=== PATIENT | male | born 1945 | race Caucasian/White ===

== ENCOUNTER 2018-06-05 12:53 | Emergency (ER) | payer OTHER ==
[~2018-06-05] VITALS: Ht 180.3 cm; Wt 97.5 kg
[2018-06-05 12:57] VITALS: Ht 180.3 cm; Wt 97.5 kg
[2018-06-05 13:44] LABS: BASOPHIL % 1.2 % (0-2); PLATELET COUNT 197 x10^3mcL (130-400); RED CELL DISTRIBUTION WIDTH 14.2 % (11.5-14.5)
[2018-06-05 14:08] LABS: CARBON DIOXIDE 30.2 mmol/L (21-32); CHLORIDE SERUM 104 mmol/L (98-107); CREATININE SERUM 0.9 mg/dL (0.7-1.3); GLUCOSE SERUM 108 mg/dL (74-106); POTASSIUM SERUM 3.6 mmol/L (3.5-5.1); SODIUM SERUM 140 mmol/L (136-145)
[2018-06-05 14:12] LABS: ALBUMIN 3.9 g/dL (3.4-5.0); ALKALINE PHOSPHATASE 97 U/L (46-116); ALT/SGPT 25 U/L (16-63); AST/SGOT 18 U/L (15-37); BILIRUBIN TOTAL 0.36 mg/dL (0.20-1.00)
[2018-06-05 15:06] VITALS: BP 136/81
== END 2018-06-05 15:06 | disposition home or self-care (01) ==
LOC: ED 12:53
PROVIDERS: Emergency Medicine
DX: S00.81XA Abrasion of other part of head, initial encounter (principal); S09.8XXA Other specified injuries of head, initial encounter; W18.30XA Fall on same level, unspecified, initial encounter; Y93.89 Activity, other specified; Y92.89 Other specified places as the place of occurrence of the external cause; Y99.8 Other external cause status
CPT/HCPCS: 36415; Q0092

== ENCOUNTER 2018-12-28 15:15 | Inpatient (IN) | payer OTHER, MEDICARE ==
[~2018-12-28] VITALS: Ht 177.8 cm; Wt 94.8 kg
[2018-12-28 15:33] VITALS: Ht 177.8 cm; Wt 94.8 kg
[2018-12-28] MEDS ORDERED: LISINOPRIL10 MG PO (17:16)
[2018-12-28] MEDS ORDERED: SIMVASTATIN40 M1 PO (17:16)
[2018-12-28 17:18] LABS: BASOPHIL % 0.8 % (0-2); PLATELET COUNT 200 x10^3mcL (130-400); RED CELL DISTRIBUTION WIDTH 14.3 % (11.5-14.5)
[2018-12-28 17:28] LABS: CALCIUM 9.1 mg/dL (8.5-10.1); CARBON DIOXIDE 30.8 mmol/L (21-32); CHLORIDE SERUM 105 mmol/L (98-107); CREATININE SERUM 1.1 mg/dL (0.7-1.3); GLUCOSE SERUM 119 mg/dL (74-106); POTASSIUM SERUM 4.7 mmol/L (3.5-5.1); SODIUM SERUM 142 mmol/L (136-145)
[2018-12-28 17:36] LABS: ALBUMIN 4.1 g/dL (3.4-5.0); ALKALINE PHOSPHATASE 85 U/L (46-116); ALT/SGPT 27 U/L (16-63); AST/SGOT 26 U/L (15-37); BILIRUBIN TOTAL 0.6 mg/dL (0.20-1.00); TOTAL PROTEIN, SERUM 7.5 g/dL (6.4-8.2)
[2018-12-28 17:52] LABS: CHOLESTEROL/HDL RATIO 3.7
[2018-12-28 18:02] LABS: T3 TOTAL 1.07 ng/mL
[2018-12-28 18:25] VITALS: BP 116/80
[2018-12-28 18:44] LABS: FREE T4 0.87 ng/dL (0.76-1.46); FREE THYROXINE INDEX 1.6 ug/dL (1.4-4.5); T4(THYROXINE) 4.1 ug/dL (4.7-13.3)
[2018-12-28 20:59] VITALS: BP 109/67
[2018-12-29 05:11] VITALS: BP 120/71
[2018-12-29 06:28] LABS: BASOPHIL % 0.4 % (0-2); PLATELET COUNT 202 x10^3mcL (130-400); RED CELL DISTRIBUTION WIDTH 14.3 % (11.5-14.5)
[2018-12-29 06:49] LABS: CALCIUM 8.6 mg/dL (8.5-10.1); CARBON DIOXIDE 30.6 mmol/L (21-32); CHLORIDE SERUM 103 mmol/L (98-107); GLUCOSE SERUM 106 mg/dL (74-106); POTASSIUM SERUM 4.6 mmol/L (3.5-5.1); SODIUM SERUM 140 mmol/L (136-145)
[2018-12-29 07:48] VITALS: BP 110/72
[2018-12-29 12:35] VITALS: BP 119/65
[2018-12-29 15:45] VITALS: BP 124/66
[2018-12-29 16:53] VITALS: BP 116/65
[2018-12-29 20:14] VITALS: BP 112/62
[2018-12-30 04:50] VITALS: BP 112/58
[2018-12-30 06:36] LABS: BASOPHIL % 0.1 % (0-2); PLATELET COUNT 181 x10^3mcL (130-400); RED CELL DISTRIBUTION WIDTH 14.4 % (11.5-14.5)
[2018-12-30 06:56] LABS: CHLORIDE SERUM 101 mmol/L (98-107); CREATININE SERUM 0.9 mg/dL (0.7-1.3); GLUCOSE SERUM 121 mg/dL (74-106); SODIUM SERUM 141 mmol/L (136-145)
[2018-12-30 07:35] VITALS: BP 127/63
[2018-12-30 12:00] VITALS: BP 113/61
[2018-12-30 17:42] VITALS: BP 127/69
[2018-12-30 19:20] VITALS: BP 107/63
[2018-12-31 04:08] VITALS: BP 129/67
[2018-12-31 07:17] LABS: BASOPHIL % 0.7 % (0-2); PLATELET COUNT 177 x10^3mcL (130-400); RED CELL DISTRIBUTION WIDTH 14.2 % (11.5-14.5)
[2018-12-31 07:40] LABS: CALCIUM 8.4 mg/dL (8.5-10.1); CARBON DIOXIDE 34.3 mmol/L (21-32); CHLORIDE SERUM 101 mmol/L (98-107); CREATININE SERUM 0.8 mg/dL (0.7-1.3); GLUCOSE SERUM 92 mg/dL (74-106); POTASSIUM SERUM 4.6 mmol/L (3.5-5.1); SODIUM SERUM 139 mmol/L (136-145)
[2018-12-31 08:42] VITALS: BP 126/81
[2018-12-31] MEDS ORDERED: APAP/HYDROCODON1 T13 PO (12:04)
[2018-12-31 13:21] VITALS: BP 113/78
== END 2018-12-31 15:10 | DRG 481 ==
LOC: ED 15:15 → DU 17:12
PROVIDERS: Emergency Medicine; Neuromusculoskeletal Medicine, Sports Medicine; ADMIT Internal Medicine
PROC: 0QSC04Z Reposition Left Lower Femur with Internal Fixation Device, Open Approach (ICD-10-PCS; principal; 2018-12-29 12:00)
DX: S72.492A Other fracture of lower end of left femur, initial encounter for closed fracture (principal); M97.12XA Periprosthetic fracture around internal prosthetic left knee joint, initial encounter; I10 Essential (primary) hypertension; E78.5 Hyperlipidemia, unspecified; F17.210 Nicotine dependence, cigarettes, uncomplicated; Z96.653 Presence of artificial knee joint, bilateral; Z96.642 Presence of left artificial hip joint; Z85.46 Personal history of malignant neoplasm of prostate; Z90.79 Acquired absence of other genital organ(s); W01.0XXA Fall on same level from slipping, tripping and stumbling without subsequent striking against object, initial encounter; Y93.H2 Activity, gardening and landscaping; Y92.017 Garden or yard in single-family (private) house as the place of occurrence of the external cause
CPT/HCPCS: 84439; 97110-GP; 97116-GP; 97530-GP; C1713; G0378; J0690; J1170; J1644; J1885; J2270; J2405; J2704; J3010; J3490; J7040; J7120; Q0092

== ENCOUNTER → 2019-02-22 | Outpatient (CLI) | payer OTHER, MEDICARE ==
[~2019-02-22] MED LIST: APAP/HYDROCODON1 T13 PO; LISINOPRIL10 MG PO; SIMVASTATIN40 M1 PO
== END | disposition home or self-care (01) ==
LOC: RD 09:06
DX: S72.402D Unspecified fracture of lower end of left femur, subsequent encounter for closed fracture with routine healing (principal); X58.XXXD Exposure to other specified factors, subsequent encounter

== ENCOUNTER → 2019-04-05 | Outpatient (CLI) | payer OTHER, MEDICARE | END | disposition home or self-care (01) | LOC: RD 09:31 | DX: S72.402A Unspecified fracture of lower end of left femur, initial encounter for closed fracture (principal); X58.XXXA Exposure to other specified factors, initial encounter; Y92.9 Unspecified place or not applicable ==

== ENCOUNTER 2019-04-13 09:57 | Day surgery (SDC) | payer OTHER, MEDICARE ==
[2019-04-12 12:39] LABS: BASOPHIL % 1.5 % (0-2); PLATELET COUNT 223 x10^3mcL (130-400)
[2019-04-12 12:50] LABS: CALCIUM 9.4 mg/dL (8.5-10.1); CARBON DIOXIDE 32.5 mmol/L (21-32); CHLORIDE SERUM 104 mmol/L (98-107); CREATININE SERUM 0.8 mg/dL (0.7-1.3); GLUCOSE SERUM 96 mg/dL (74-106); POTASSIUM SERUM 4.6 mmol/L (3.5-5.1); SODIUM SERUM 141 mmol/L (136-145)
[2019-04-12 12:59] LABS: RED CELL DISTRIBUTION WIDTH 15.1 % (11.5-14.5)
[~2019-04-13] VITALS: Ht 177.8 cm; Wt 98.4 kg
[2019-04-13 10:30] VITALS: BP 147/96
[2019-04-13 15:25] VITALS: BP 121/88
== END 2019-04-13 15:15 | disposition home or self-care (01) ==
LOC: DS 09:57
PROVIDERS: Neuromusculoskeletal Medicine, Sports Medicine
DX: T84.89XA Other specified complication of internal orthopedic prosthetic devices, implants and grafts, initial encounter (principal); I10 Essential (primary) hypertension; E66.3 Overweight; Z98.890 Other specified postprocedural states; Z79.899 Other long term (current) drug therapy; Z85.46 Personal history of malignant neoplasm of prostate; E78.00 Pure hypercholesterolemia, unspecified; Z96.643 Presence of artificial hip joint, bilateral; Z96.653 Presence of artificial knee joint, bilateral; Z68.30 Body mass index [BMI] 30.0-30.9, adult
CPT/HCPCS: J0690; J2001; J2704; J3010; J3490; J7120

== ENCOUNTER → 2019-05-11 | Outpatient (CLI) | payer OTHER, MEDICARE | END | disposition home or self-care (01) | LOC: RD 09:27 | DX: S72.92XD Unspecified fracture of left femur, subsequent encounter for closed fracture with routine healing (principal); X58.XXXD Exposure to other specified factors, subsequent encounter ==

== ENCOUNTER → 2019-06-22 | Outpatient (CLI) | payer OTHER, MEDICARE | END | disposition home or self-care (01) | LOC: RD 09:31 | DX: S72.402A Unspecified fracture of lower end of left femur, initial encounter for closed fracture (principal); X58.XXXA Exposure to other specified factors, initial encounter; Y92.9 Unspecified place or not applicable ==

== ENCOUNTER → 2019-07-27 | Outpatient (CLI) | payer OTHER, MEDICARE | END | disposition home or self-care (01) | LOC: RD 08:21 | DX: S72.92XA Unspecified fracture of left femur, initial encounter for closed fracture (principal); X58.XXXA Exposure to other specified factors, initial encounter; Y92.9 Unspecified place or not applicable ==

== ENCOUNTER → 2019-08-17 | Day surgery (SDC) | payer OTHER, MEDICARE ==
[2019-08-12 11:22] LABS: BASOPHIL % 2.2 % (0-2); PLATELET COUNT 191 x10^3mcL (130-400); RED CELL DISTRIBUTION WIDTH 13.8 % (11.5-14.5)
[2019-08-12 11:22] LABS: microscopic required? NO
[2019-08-12 11:27] LABS: UA SPECIFIC GRAVITY 1.025 (1.005-1.035); urine erythrocyte NEGATIVE (NEGATIVE)
[2019-08-12 11:28] LABS: CALCIUM 9.2 mg/dL (8.5-10.1); CARBON DIOXIDE 32.5 mmol/L (21-32); CHLORIDE SERUM 101 mmol/L (98-107); CREATININE SERUM 0.9 mg/dL (0.7-1.3); GLUCOSE SERUM 106 mg/dL (74-106); POTASSIUM SERUM 4.6 mmol/L (3.5-5.1); SODIUM SERUM 140 mmol/L (136-145)
[~2019-08-17] VITALS: Ht 177.8 cm; Wt 99.8 kg
[2019-08-17 06:24] VITALS: BP 150/83
[2019-08-17 12:45] VITALS: BP 141/90
== END | disposition home or self-care (01) ==
LOC: DS 06:13 → OR 07:30 → DS 09:00
PROVIDERS: ATTEND Neuromusculoskeletal Medicine, Sports Medicine
DX: S72.392 Other fracture of shaft of left femur (principal); I10 Essential (primary) hypertension; Z11.59 Encounter for screening for other viral diseases; X58.XXXD Exposure to other specified factors, subsequent encounter; Z85.89 Personal history of malignant neoplasm of other organs and systems
CPT/HCPCS: J0690; J2405; J2704; J3010; J3490; J7120; Q0092; U0003-CS

== ENCOUNTER → 2019-09-19 | Outpatient (CLI) | payer OTHER, MEDICARE | END | disposition home or self-care (01) | LOC: RD 14:17 | PROVIDERS: ATTEND Neuromusculoskeletal Medicine, Sports Medicine | DX: S72.92XD Unspecified fracture of left femur, subsequent encounter for closed fracture with routine healing (principal); X58.XXXD Exposure to other specified factors, subsequent encounter ==